=== PATIENT | female | born 1975 | race Caucasian/White ===

== ENCOUNTER 2016-10-21 10:21 | Day surgery (SDC) | payer OTHER ==
[~2016-10-21] VITALS: Ht 172.7 cm; Wt 64.4 kg
[~2016-10-21 10:21] MED LIST: BOTOX100 UNITS IJ; Dilaudid PO; FIORICET,ESG1 TABLET PO; IBUPROFEN800 MG PO; Motrin PO; NEXPLANON68 MG SC; PROMETHAZINE HC25 M1 PO
[2016-10-21 10:57] VITALS: BP 129/6
[2016-10-21] MEDS ORDERED: IBUPROFEN800 MG PO (14:26)
[2016-10-21 17:34] VITALS: BP 128/80
[2016-10-21 17:35] VITALS: BP 107/60
== END 2016-10-21 18:00 | disposition home or self-care (01) ==
LOC: SDC 10:21
PROC: 0HB7XZZ Excision of Abdomen Skin, External Approach (ICD-10-PCS; principal; 2016-10-21)
DX: N80.6 Endometriosis in cutaneous scar (principal); Z88.2 Allergy status to sulfonamides
CPT/HCPCS: 88305; J0690; J1100; J1200; J1885; J2250; J2405; J2765; J3010

== ENCOUNTER 2017-04-19 21:19 | Emergency (ER) | payer OTHER ==
[~2017-04-19] VITALS: Ht 172.7 cm; Wt 65.4 kg
[2017-04-19 22:09] LABS: HEMATOCRIT 36.6 % (36.0-46.0); MCH 32.4 PG (29.0-34.0); MCHC 34.4 G/DL (30.0-36.0); MCV 94.1 FL (83-99); MEAN PLAT.VOLUME 10.4 uM^3 (9.5-12.4); PLATELET COUNT 416 K/uL (156-360); RBC DIS.WIDTH-CV 13.2 % (11.8-14.6); RBC DIS.WIDTH-SD 45.7 % (39-53); RED BLOOD COUNT 3.89 M/uL (3.80-5.20); WHITE BLOOD COUNT 18.5 K/uL (4.1-10.2)
[2017-04-19 22:21] LABS: CHLORIDE 107 mEq/L (99-109); POTASSIUM 4.4 mEq/L (3.7-5.4); SODIUM 137 mEq/L (136-147)
[2017-04-19 22:23] LABS: GLUCOSE 100 mg/dL (70-99)
[2017-04-19 22:25] LABS: ANION GAP 7 MEQ/L (2-14); TOTAL BILIRUBIN 0.4 mg/dL (0.0-1.0)
[2017-04-19 22:27] LABS: ALKALINE PHOSPHATASE 64 IU/L (3-129); GFR ESTIMATE (CALCULATED) > 59 mL/min/
[2017-04-19 22:28] LABS: UREA NITROGEN (BUN) 11 mg/dL (9-23)
[2017-04-19 22:30] LABS: LIPASE 24 U/L (1.0-51.0)
[2017-04-20 01:31] LABS: ADD MIUA? NO; BILIRUBIN NEGATIVE; BLOOD NEGATIVE; COLOR YELLOW ((YELLOW)); GLUCOSE (STRIP) NEGATIVE; KETONES NEGATIVE; LEUKOCYTES NEGATIVE; NITRITE NEGATIVE; PROTEIN (STRIP) NEGATIVE; SPECIFIC GRAVITY 1.016 (1.000-1.030); UCUL ADDED? NO; UROBILINOGEN 0.2 MG/DL (0.2-1.0)
[2017-04-20 03:09] VITALS: BP 119/78
== END 2017-04-20 03:10 | disposition home or self-care (01) ==
LOC: EME 21:19
DX: R10.32 Left lower quadrant pain (principal); R11.0 Nausea; K80.20 Calculus of gallbladder without cholecystitis without obstruction; N83.201 Unspecified ovarian cyst, right side; Z90.710 Acquired absence of both cervix and uterus
CPT/HCPCS: 74176; 76856; 80053; 81003; 83690; 85027; 99281; 99283; J1885

== ENCOUNTER 2017-09-27 08:25 | Day surgery (SDC) | payer OTHER ==
[~2017-09-27] VITALS: Ht 172.7 cm; Wt 62.7 kg
[~2017-09-27 08:25] MED LIST changes: +ALDACTONE50 MG PO; +ASPIRIN81 M2 PO; +BUSPAR15 MG PO; +ZANAFLEX2 M1 PO
[2017-09-27 08:49] VITALS: BP 118/81
[2017-09-27] MEDS ORDERED: ULTRAM50 MG PO (12:40)
[2017-09-27 14:08] VITALS: BP 100/56
[2017-09-27 15:05] VITALS: BP 101/58
== END 2017-09-27 15:40 | disposition home or self-care (01) ==
LOC: SDC 08:25
DX: K80.10 Calculus of gallbladder with chronic cholecystitis without obstruction (principal); K66.0 Peritoneal adhesions (postprocedural) (postinfection); D18.03 Hemangioma of intra-abdominal structures; K21.9 Gastro-esophageal reflux disease without esophagitis; Z90.81 Acquired absence of spleen; Z90.710 Acquired absence of both cervix and uterus; Z88.5 Allergy status to narcotic agent
CPT/HCPCS: 88304; C1758; C1769; J0131; J1100; J1885; J2250; J2405; J2704; J2710; J3010; Q0175; S0020; S0074

== ENCOUNTER 2018-05-27 15:10 | Emergency (ER) | payer OTHER ==
[~2018-05-27] VITALS: Ht 172.7 cm; Wt 62.7 kg
[~2018-05-27 15:10] MED LIST changes: +ULTRAM50 MG PO
[2018-05-27] MEDS ORDERED: KEFLEX500 MG PO (15:41)
[2018-05-27 17:12] VITALS: BP 102/74
== END 2018-05-27 17:20 | disposition home or self-care (01) ==
LOC: EME 15:10
DX: J02.9 Acute pharyngitis, unspecified (principal); K08.409 Partial loss of teeth, unspecified cause, unspecified class; R50.9 Fever, unspecified; R11.2 Nausea with vomiting, unspecified; G43.909 Migraine, unspecified, not intractable, without status migrainosus; K21.9 Gastro-esophageal reflux disease without esophagitis; Z79.82 Long term (current) use of aspirin; Z88.5 Allergy status to narcotic agent; Z88.2 Allergy status to sulfonamides; Z88.6 Allergy status to analgesic agent; Z90.81 Acquired absence of spleen
CPT/HCPCS: 99281; 99283; J0780